=== PATIENT | female | born 1990 | race Two or more races ===

== ENCOUNTER 2018-02-19 12:35 | Emergency (ER) | payer OTHER ==
--- NOTE | 2018-02-19 13:30 | ED Physician Documentation ---
History of Present Illness - Stated complaint Stated Complaint: SORE THROAT/RASH AROUND MOUTH - Chief complaint Chief Complaint: General - Additonal information Additional information: hx from pt 27 y/o f [place] just returned from [facility] her mother was dx with hand foot and mouth dz now pt has a sore throat and wonders if she has same Review of Systems Constitutional: denies: Fever Throat: reports: Sore throat Skin: reports: Rash PD PAST MEDICAL HISTORY - Past Medical History Past Medical History: No - Past Surgical History Past Surgical History: Yes - Present Medications Home Medications: Ambulatory Orders Medication Instructions Recorded Confirmed Loratadine [Claritin] 1 tab PO DAILY 02/19/18 02/19/18 - Allergies Allergies/Adverse Reactions: Allergies Allergy/AdvReac Type Severity Reaction Status Date / Time Penicillins Allergy Anaphylaxis Verified 02/19/18 12:44 ciprofloxacin [From Cipro] AdvReac Rash Verified 02/19/18 12:44 Sulfa (Sulfonamide AdvReac Rash Verified 02/19/18 12:44 Antibiotics) - Social History Does the pt smoke?: No Smoking Status: Never smoker Does the pt drink ETOH?: No Does the pt have substance abuse?: No - Immunizations Immunizations are current?: Yes Immunizations: TDAP current <10years PD ED PE NORMAL - Vitals Vital signs reviewed: Yes - HEENT HEENT: Other (erythema but no oral ulcers, no exudate, no trismus) - Neck Neck: Supple, no meningeal sign. No: No adenopathy (anterior no posterior) - Cardiac Cardiac: RRR - Respiratory Respiratory: No respiratory distress, Clear bilaterally - Abdomen Abdomen: Soft, Non tender, No organomegaly - Derm Derm: No rash, Other (no palm or sole lesions) Results - Vitals Vitals: Vital Signs - 24 hr 02/19/18 12:40 Temperature 36.5 C Heart Rate 83 Respiratory 16 Rate Blood Pressure 124/75 O2 Saturation 98 Oxygen O2 Source Room air - Labs Labs: Laboratory Tests 02/19/18 13:29 Group A Strep Rapid Negative PD MEDICAL DECISION MAKING - Sepsis Event Vital Signs: Vital Signs - 24 hr 02/19/18 12:40 Temperature 36.5 C Heart Rate 83 Respiratory 16 Rate Blood Pressure 124/75 O2 Saturation 98 Oxygen O2 Source Room air Departure - Departure Disposition: 01 Home, Self Care Clinical Impression: Pharyngitis Qualifiers: Pharyngitis/tonsillitis etiology: unspecified etiology Qualified Code(s): J02.9 - Acute pharyngitis, unspecified Condition: Good Instructions: ED Pharyngitis Viral Report Pending Follow-Up: LASHAY Emerson [Provider Group] Comments: The strep test was negative and this does not look like hand foot and mouth The ER staff will call you if the throat culture is positive and antibiotics are needed. If you develop mouth sores and blisters on your hands and feet, then that would suggest hand foot and mouth - we would be happy to see you in the ER but this is usually a viral disease and is managed with throat spray for the pain and antihistamines for any itching and can likely be managed by your PMD at [facility]
[2018-02-19 14:30] VITALS: BP 109/64
== END 2018-02-19 14:47 | disposition home or self-care (01) ==
LOC: ED 12:35
DX: J02.9 Acute pharyngitis, unspecified (principal)
CPT/HCPCS: 87070; 87430; 99282; 99283

== ENCOUNTER 2018-03-11 18:09 | Emergency (ER) | payer OTHER ==
[2018-03-11 18:38] LABS: BILIRUBIN,URINE NEGATIVE (NEGATIVE); GLUCOSE, URINE (UA) NEGATIVE (NEGATIVE); KETONES,URINE (UA) NEGATIVE (NEGATIVE); LEUKOCYTE ESTERASE, URINE NEGATIVE (NEGATIVE); NITRITE,URINE NEGATIVE (NEGATIVE); OCCULT BLOOD,URINE NEGATIVE (NEGATIVE); PROTEIN,URINE NEGATIVE (NEGATIVE); UROBILINOGEN,URINE 0.2 (NORMAL) E.U./dL (NORMAL)
[2018-03-11 18:41] LABS: CLARITY,URINE CLEAR (CLEAR); HCG UR QUAL NEGATIVE
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
[2018-03-11] MEDS ORDERED: DEXAMETHASONE 10 MG/ML VIAL PO STA (20:11)
[2018-03-11] MEDS ORDERED: ONDANSETRON ODT 4 MG TABLET TL STA (20:11)
[2018-03-11] MEDS ORDERED: ACETAMINOPHEN 325 MG TABLET PO STA (20:11)
[2018-03-11] MEDS ORDERED: ONDANSETRON ODT 4 MG Prepack 2 TL PRN (20:14)
[2018-03-11 20:18] VITALS: BP 115/65
== END 2018-03-11 20:38 | disposition home or self-care (01) ==
LOC: ED 18:09
DX: T59.891A Toxic effect of other specified gases, fumes and vapors, accidental (unintentional), initial encounter (principal); R11.0 Nausea; R51 Headache
CPT/HCPCS: 81003; 81025; 99283; A9270; Q0162; 81001; 87086

== ENCOUNTER 2018-11-17 19:57 | Emergency (ER) | payer OTHER ==
[2018-11-17 20:08] VITALS: BP 121/79
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
== END 2018-11-17 21:51 | disposition home or self-care (01) ==
LOC: ED 19:57
DX: S00.01XA Abrasion of scalp, initial encounter (principal); W22.09XA Striking against other stationary object, initial encounter; Y99.0 Civilian activity done for income or pay
CPT/HCPCS: 99282; 99283